=== PATIENT | female | born 1985 | race Caucasian/White ===

== ENCOUNTER 2022-06-11 20:27 | Emergency (ER) | payer OTHER ==
[~2022-06-11] VITALS: Ht 165.1 cm; Wt 64.0 kg
[2022-06-11] MEDS ORDERED: TETANUS, DIPHTHERIA, PERTUSSIS VAC/PF 0.5ML (>10YR OLD) IM ONE (21:45)
[2022-06-11] MEDS ORDERED: ACETAMINOPHEN 325MG TABLET PO ONE (21:45)
[2022-06-11] MEDS ORDERED: ACET-2708 MT (23:38)
[2022-06-12 00:30] VITALS: BP 135/81
== END 2022-06-12 03:53 | disposition home or self-care (01) ==
LOC: ER 20:27
DX: S82.61XA Displaced fracture of lateral malleolus of right fibula, initial encounter for closed fracture (principal); S93.401A Sprain of unspecified ligament of right ankle, initial encounter; S50.01XA Contusion of right elbow, initial encounter; S90.511A Abrasion, right ankle, initial encounter; F20.9 Schizophrenia, unspecified; F12.10 Cannabis abuse, uncomplicated; F17.210 Nicotine dependence, cigarettes, uncomplicated; Y02.0XXA Assault by pushing or placing victim in front of motor vehicle, initial encounter; Y93.89 Activity, other specified; Y92.488 Other paved roadways as the place of occurrence of the external cause
CPT/HCPCS: 70450; 73080; 73610; 81025; 90471; 90715; 99284; Z7610